=== PATIENT | male | born 1955 | race Caucasian/White ===

== ENCOUNTER 2016-09-22 19:32 | Emergency (ER) | payer OTHER ==
[~2016-09-22] VITALS: Ht 167.6 cm; Wt 76.0 kg
[~2016-09-22 19:32] MED LIST: DOXY100T2 PO; DULO60CA42 PO; RIFA300C4 PO
[2016-09-22 19:38] VITALS: BP 196/100; PULSE 68; RESP 16; O2SAT 98
== END 2016-09-22 21:58 | disposition left against medical advice (07) ==
LOC: SED 19:32
DX: M79.644 Pain in right finger(s) (principal); Z53.21 Procedure and treatment not carried out due to patient leaving prior to being seen by health care provider